=== PATIENT | female | born 1960 | race Caucasian/White ===

== ENCOUNTER → 2016-07-07 | Outpatient (CLI) | payer MEDICARE ==
--- NOTE | 2016-07-08 13:14 | MM ---
Reason for exam: screening (asymptomatic). Last mammogram was performed 1 year ago. History: Patient is postmenopausal. Physical Findings: A clinical breast exam by your physician is recommended on an annual basis and results should be correlated with mammographic findings. MG 3D Screening Mammo W/Cad Bilateral CC and MLO view(s) were taken. Prior study comparison: July 06, 2015, bilateral MG 3d screening mammo w/cad. The breast tissue is heterogeneously dense. This may lower the sensitivity of mammography. No significant changes when compared with prior studies. ASSESSMENT: Negative, BI-RAD 1 RECOMMENDATION: Routine screening mammogram of both breasts in 1 year. Manage patient on a clinical basis.
== END | disposition home or self-care (01) ==
LOC: RADMAMWWP 08:33
PROVIDERS: ATTEND Family Medicine
DX: Z12.31 Encounter for screening mammogram for malignant neoplasm of breast (principal)
CPT/HCPCS: 77063; G0202

== ENCOUNTER 2020-02-11 01:51 | Emergency (ER) | payer MEDICARE ==
[2020-02-11 02:00] VITALS: RESP 16
--- NOTE | 2020-02-11 02:45 | ED ---
Psych HPI - General Chief Complaint: Psychiatric Symptoms Stated Complaint: mental health Time Seen by Provider: 02/11/20 02:07 Source: patient, EMS Mode of arrival: EMS - History of Present Illness Initial Comments: This patient is a 59-year-old woman who presents to have psychiatric evaluation. The patient had phoned 911 a number of times tonight. She states that she has been having racing thoughts and is concerned that things are disappearing from her house. She was concerned that people may be taking things from her. MD Complaint: other -: days(s) Associated Psychiatric Symptoms: racing thoughts History of same: Yes Quality: getting worse Improves With: none Worsens With: none - Related Data Home Medications Medication Instructions Recorded Confirmed LORazepam [Ativan] 0.25 mg PO DIRECTED 07/30/14 07/30/14 [place] Carbonate [[place]] 1 tab PO HS 07/30/14 07/30/14 traZODone HCL [Desyrel] 1 tab PO HS 07/30/14 07/30/14 Previous Rx's Medication Instructions Recorded ALPRAZolam [Xanax] 0.5 mg PO HS PRN #5 tablet 07/30/14 Allergies Allergy/AdvReac Type Severity Reaction Status Date / Time divalproex sodium AdvReac Swelling Verified 07/30/14 16:56 [From Depakote] lamotrigine [From Lamictal] AdvReac Swelling Verified 07/30/14 16:56 Review of Systems ROS Statement: Those systems with pertinent positive or pertinent negative responses have been documented in the HPI. ROS Other: All systems not noted in ROS Statement are negative. Constitutional: Denies: fever, chills Respiratory: Reports: cough. Denies: dyspnea, wheezes, hemoptysis Cardiovascular: Denies: chest pain, palpitations, syncope Gastrointestinal: Denies: abdominal pain, vomiting, diarrhea Genitourinary: Denies: dysuria, hematuria Musculoskeletal: Denies: back pain Skin: Denies: rash Neurological: Denies: headache Psychiatric: Reports: as per HPI, anxiety. Denies: depression, visual hallucinations, homicidal thoughts, suicidal thoughts Past Medical History Past Medical History: No Reported History, COPD History of Any Multi-Drug Resistant Organisms: None Reported Past Surgical History: Section Past Psychological History: Anxiety, Bipolar Smoking Status: Current every day smoker Past Alcohol Use History: None Reported Past Drug Use History: None Reported General Exam Limitations: no limitations General appearance: alert, in no apparent distress Head exam: Present: atraumatic, normocephalic Eye exam: Present: normal appearance. Absent: scleral icterus, conjunctival injection ENT exam: Present: normal oropharynx Neck exam: Present: normal inspection Respiratory exam: Present: normal lung sounds bilaterally. Absent: respiratory distress, wheezes, rales, rhonchi, stridor Cardiovascular Exam: Present: regular rate, normal rhythm, normal heart sounds. Absent: systolic murmur, diastolic murmur, rubs, gallop GI/Abdominal exam: Present: soft. Absent: distended, tenderness, guarding, rebound, rigid, mass Extremities exam: Present: normal inspection, normal capillary refill Back exam: Present: normal inspection Neurological exam: Present: alert, normal gait Psychiatric exam: Present: anxious. Absent: depressed, agitated, flat affect, manic, homicidal ideation, suicidal ideation Skin exam: Present: warm, dry, intact, normal color. Absent: rash Course Vital Signs 02/11/20 01:53 Temperature 98.4 F Pulse Rate 97 Respiratory 16 Rate Blood Pressure 109/65 O2 Sat by Pulse 94 L Oximetry Medical Decision Making - Lab Data Lab Results 02/11/20 Range/Units 02:26 Urine Opiates Screen Not Detected (NotDetected) Ur Oxycodone Screen Not Detected (NotDetected) Urine Methadone Screen Not Detected (NotDetected) Ur Propoxyphene Screen Not Detected (NotDetected) Ur Barbiturates Screen Not Detected (NotDetected) U Tricyclic Antidepress Not Detected (NotDetected) Ur Phencyclidine Scrn Not Detected (NotDetected) Ur Amphetamines Screen Not Detected (NotDetected) U Methamphetamines Scrn Not Detected (NotDetected) U Benzodiazepines Scrn Not Detected (NotDetected) Urine Cocaine Screen Not Detected (NotDetected) U Marijuana (THC) Screen Not Detected (NotDetected) Disposition Clinical Impression: Acute anxiety Disposition: HOME SELF-CARE Condition: Good Instructions (If sedation given, give patient instructions): Anxiety (ED) Is patient prescribed a controlled substance at d/c from ED?: No Referrals: Ernesto Mckay MD [Primary Care Provider] - 1-2 days
[2020-02-11 03:08] LABS: Amphetamine Screen,Urine Not Detected (NotDetected); Barbiturate Screen,Urine Not Detected (NotDetected); Benzodiazepines Screen,Urine Not Detected (NotDetected); Cocaine Screen,Urine Not Detected (NotDetected); Methadone Screen, Urine Not Detected (NotDetected); Opiate Screen,Urine Not Detected (NotDetected); Oxycodone Screen, Urine Not Detected (NotDetected); Phencyclidine Screen,Urine Not Detected (NotDetected); Tricyclic Antidepressant,Urine Not Detected (NotDetected); Urn Cannabinoid Scrn Not Detected (NotDetected)
[2020-02-11] MEDS ORDERED: MELATONIN 3 MG TABLET PO ONE (04:15)
[2020-02-11 06:06] VITALS: BP 115/71; PULSE 82; TEMP 97.9
[2020-02-11] MEDS ORDERED: MELATONIN 3 MG TABLET PO SCH (21:00)
== END 2020-02-11 06:00 | disposition home or self-care (01) ==
LOC: EC 01:51
DX: F41.9 Anxiety disorder, unspecified (principal); F31.9 Bipolar disorder, unspecified; F17.200 Nicotine dependence, unspecified, uncomplicated; Z79.899 Other long term (current) drug therapy; Z88.8 Allergy status to other drugs, medicaments and biological substances
CPT/HCPCS: 80306; 82075; 87635; 99284

== ENCOUNTER → 2022-06-30 | Outpatient (CLI) | payer MEDICARE ==
--- NOTE | 2022-07-01 19:27 | MM ---
Reason for Exam: Screening (asymptomatic). Last mammogram was performed 6 year(s) and 0 month(s) ago. Patient History: Menarche at age 14. First Full-Term at age 26. Postmenopausal. Risk Values: Dottie 5 year model risk: 1.6%. NCI Lifetime model risk: 8.1%. Prior Study Comparison: 07/06/2015 Bilateral Screening Mammogram, [facility]. 07/07/2016 Bilateral Screening Mammogram, [facility]. Tissue Density: The breast tissue is heterogeneously dense. This may lower the sensitivity of mammography. Findings: Analyzed By CAD. There is no suspicious group of microcalcifications or new suspicious mass in either breast. Overall Assessment: Negative, BI-RAD 1 Management: Screening Mammogram of both breasts in 1 year. . Patient should continue monthly self-breast exams. A clinical breast exam by your physician is recommended on an annual basis. This exam should not preclude additional follow-up of suspicious palpable abnormalities. Note on Dottie scores and lifetime risk: 1. A Dottie score greater than 3% is considered moderate risk. If this is the case, consider specialist referral to assess eligibility for a risk reducing agent. 2. If overall lifetime risk for the development of breast cancer is 20% or higher, the patient may qualify for future screening with alternating mammogram and breast MRI. Electronically signed and approved by: Moy Bueno M.D. Radiologist
== END | disposition home or self-care (01) ==
LOC: RADMAMWWP 12:31
PROVIDERS: ATTEND Family Medicine
DX: Z12.31 Encounter for screening mammogram for malignant neoplasm of breast (principal); Z78.0 Asymptomatic menopausal state
CPT/HCPCS: 77063; 77067

== ENCOUNTER → 2022-06-30 | Outpatient (CLI) | payer MEDICARE ==
--- NOTE | 2022-06-30 22:41 | CTL ---
EXAMINATION TYPE: CT Low Dose Lung DATE OF EXAM ORDERED: 06/30/2022 HISTORY: 61-year-old female Z87.891, personal history of tobacco use. Current smoker with 45 pack-yea r history. Lung cancer screening CT DLP: [address] CTDI: 2.64 mGy Automated exposure control for dose reduction was used. SCREENING VISIT: Baseline COMPARISON: None TECHNIQUE: Low dose computed tomography scan was performed through the chest with coronal and sagitta l reconstructions. CT DIAGNOSTIC QUALITY: Limited, but interpretable FINDINGS: The heart is normal size without pericardial effusion. Mild LAD coronary artery calcifications are pr esent. Ascending aorta measures mildly aneurysmal at 4.2 cm. Upper descending thoracic aorta is ectatic at 3 .5 cm. Lower descending thoracic aorta mildly aneurysmal at 3.2 cm. Scattered nonenlarged mediastinal lymph nodes are present. No thoracic lymphadenopathy by CT size cri teria. Lobulated, bulky appearing thyroid gland. Dedicated thyroid ultrasound could exclude underlying nodul es. Asymmetric elevation right hemidiaphragm. If concern for hemidiaphragmatic paralysis, a fluoroscopic sniff test could be performed. Prominent bands of atelectasis/scarring at the right mid and lower lung. Minimal biapical pleural-par enchymal scarring. Moderate bronchial wall thickening. Some segmental chronic volume loss within the anterior right base. No consolidation or pleural effusion. Very limited assessment of the visualized upper abdomen due to noncontrast, low-dose CT technique. Bones: No osseous destructive process. IMPRESSION: 1. Lung RADS 1, negative. No suspicious pulmonary nodules. 2. Asymmetric elevation right hemidiaphragm. Concern for hemidiaphragmatic paralysis, a fluoroscopic sniff test could be performed. 3. Bronchial wall thickening suggests bronchitis or chronic asthma. There is some minimal underlying emphysematous change. Bands of scarring at the right mid and lower lung. An area of chronic segmental volume loss along the anterior right base. 4. Bulky thyroid gland. Dedicated thyroid ultrasound could assess for underlying nodules. CT LUNG RAD AND CT CHEST RECOMMENDATION: Lung-Rad 1 Negative: Continue annual screening with LDCT in 12 months. S Modifier (other clinically significant findings): S, see above in regards to the thyroid gland and the right hemidiaphragm.
== END | disposition home or self-care (01) ==
LOC: RADCTMAIN 12:32
PROVIDERS: ATTEND Family Medicine
DX: Z12.2 Encounter for screening for malignant neoplasm of respiratory organs (principal); J43.9 Emphysema, unspecified; J98.4 Other disorders of lung; J98.6 Disorders of diaphragm; F17.210 Nicotine dependence, cigarettes, uncomplicated
CPT/HCPCS: 71271

== ENCOUNTER 2022-07-23 20:16 | Emergency (ER) | payer MEDICARE ==
[2022-07-23 20:37] VITALS: TEMP 98.6
--- NOTE | 2022-07-23 21:52 | XR ---
EXAMINATION TYPE: XR chest 2V DATE OF EXAM: 07/23/2022 8:57 PM COMPARISON: none TECHNIQUE: XR chest 2V Frontal and lateral views of the chest. CLINICAL INDICATION:Female, 61 years old with history of Coughing up blood; FINDINGS: Lungs/Pleura: Bibasilar atelectasis. No evidence for pneumothorax, pleural effusion or focal consolid ation. Pulmonary vascularity: Unremarkable. Heart/mediastinum: Cardiomediastinal silhouette is unremarkable. Musculoskeletal: No acute osseous pathology. IMPRESSION: Right basilar flat like atelectasis, No acute cardiopulmonary disease/process.
--- NOTE | 2022-07-23 22:10 | ED ---
Recheck HPI - General Chief Complaint: Upper Respiratory Infection Stated Complaint: coughing up blood Time Seen by Provider: 07/23/22 21:41 Source: patient, RN notes reviewed, old records reviewed Mode of arrival: ambulatory Limitations: no limitations - History of Present Illness Initial Comments: This is a 61-year-old female to the ER today. She presents today for evaluation regards to coughing and coughing up blood. History of bronchitis recent computed tomography scan to rule out cancer. No travel history no sick contacts no fevers no current chest pain. MD Complaint: other (Hemoptysis) -: days(s) Returns Today for: other (States that she still is coughing up blood although improving now it's mixed with mucus) Symptoms Since Prior Visit: no new symptoms Associated Symptoms: none Treatments Prior to Arrival: other - Related Data Home Medications Medication Instructions Recorded Confirmed LORazepam [Ativan] 0.25 mg PO DIRECTED 07/30/14 07/30/14 [place] Carbonate [[place]] 1 tab PO HS 07/30/14 07/30/14 traZODone HCL [Desyrel] 1 tab PO HS 07/30/14 07/30/14 Previous Rx's Medication Instructions Recorded ALPRAZolam [Xanax] 0.5 mg PO HS PRN #5 tablet 07/30/14 Allergies Allergy/AdvReac Type Severity Reaction Status Date / Time divalproex sodium AdvReac Swelling Verified 07/23/22 20:37 [From Depakote] lamotrigine [From Lamictal] AdvReac Swelling Verified 07/23/22 20:37 Review of Systems ROS Statement: Those systems with pertinent positive or pertinent negative responses have been documented in the HPI. ROS Other: All systems not noted in ROS Statement are negative. Past Medical History Past Medical History: No Reported History, COPD History of Any Multi-Drug Resistant Organisms: None Reported Past Surgical History: Section Past Psychological History: Anxiety, Bipolar Smoking Status: Current every day smoker Past Alcohol Use History: None Reported Past Drug Use History: None Reported General Exam Limitations: no limitations General appearance: alert, in no apparent distress Head exam: Present: atraumatic, normocephalic, normal inspection Eye exam: Present: normal appearance, PERRL, EOMI. Absent: scleral icterus, conjunctival injection, periorbital swelling ENT exam: Present: normal exam, mucous membranes moist Neck exam: Present: normal inspection. Absent: tenderness, meningismus, lymphadenopathy Respiratory exam: Present: wheezes. Absent: normal lung sounds bilaterally, respiratory distress, rales, rhonchi, stridor Cardiovascular Exam: Present: regular rate, normal rhythm, normal heart sounds. Absent: systolic murmur, diastolic murmur, rubs, gallop, clicks GI/Abdominal exam: Present: soft, normal bowel sounds. Absent: distended, tenderness, guarding, rebound, rigid Extremities exam: Present: normal inspection, full ROM, normal capillary refill. Absent: tenderness, pedal edema, joint swelling, calf tenderness Back exam: Present: normal inspection Neurological exam: Present: alert, oriented X3, CN II-XII intact Psychiatric exam: Present: normal affect, normal mood Skin exam: Present: warm, dry, intact, normal color. Absent: rash Course Vital Signs 07/23/22 07/23/22 20:33 22:32 Temperature 98.6 F Pulse Rate 92 89 Respiratory 15 18 Rate Blood Pressure 115/76 155/86 O2 Sat by Pulse 93 L 94 L Oximetry - Reevaluation(s) Reevaluation #1: 07/23/22 22:39 Medical record is reviewed Reevaluation #2: 07/23/22 22:39 Patient has no hemoptysis here in the ER Reevaluation #3: 07/23/22 22:39 Patient informed of results of x-ray and CT questions are answered Reevaluation #4: 07/23/22 22:39 Was pt. sent in by a medical professional or institution? @ -no Did you speak to anyone other than the patient for history? @ -no Did you review nursing and triage notes? @ -agree Were old charts reviewed? @ -no Differential Diagnosis? @ -prior EKG interpreted by me (3pts min.)? @ -yes X-rays interpreted by me (1pt min.)? @ -yes CT interpreted by me (1pt min.)? @ -no U/S interpreted by me (1pt. min.)? @ -no What testing was considered but not performed? (CT, X-rays, U/S, labs)? Why? @ -no What meds were considered but not given? Why? @ -no Did you discuss the management of the patient with other professionals? @ -no Did you reconcile home meds? @ -no Was smoking cessation discussed for >3mins.? @ -no Was critical care preformed (if so, how long)? @ -no Were there social determinants of health that impacted care today? How? (Homelessness, low income, unemployed, alcoholism, drug addiction, transportation, low edu. Level, literacy, decrease access to med. care, nursing home, rehab)? @ -no Was there de-escalation of care discussed even if they declined? (Discuss DNR or withdrawal of care, Hospice)? @ -no What co-morbidities impacted this encounter? (DM, HTN, Smoking, COPD, CAD, Cancer, CVA, Hep., AIDS, mental health diagnosis, sleep apnea, morbid obesity)? @ -none Was patient admitted / discharged? @ - Undiagnosed new problem with uncertain prognosis? @ -no Drug Therapy requiring intensive monitoring for toxicity (Heparin, Nitro, Insulin, Cardizem)? @ -no Were any procedures done? @ -no Diagnosis/symptom? @ - Acute, or Chronic, or Acute on Chronic? @ -no Uncomplicated (without systemic symptoms) or Complicated (systemic symptoms)? @ -uncomplicated Side effects of treatment? @ -no Exacerbation, Progression, or Severe Exacerbation] @ -no Poses a threat to life or bodily function? @ -yes Reevaluation #5: 07/23/22 22:39 Differential Dyspnea: Coronary syndrome, arrhythmia, tamponade, asthma, COPD, pulmonary embolism, pneumonia, pneumothorax, pulmonary effusion, anaphylaxis, diabetic ketoacidosis, flailed chest, pulmonary contusion, diaphragmatic rupture, anemia, neuromuscular, this is not meant to be an all-inclusive list. Medical Decision Making - Medical Decision Making 61 female with hemoptysis, improving from prior recent computed tomography scan showed chest x-ray is negative, patient is in no distress and can be discharged home - Lab Data Lab Results 07/23/22 Range/Units 21:43 Influenza Type A (PCR) Not Detected (Not Detectd) Influenza Type B (PCR) Not Detected (Not Detectd) RSV (PCR) Not Detected (Not Detectd) SARS-CoV-2 (PCR) Not Detected (Not Detectd) - Radiology Data Radiology results: report reviewed (Chest x-rays negative for acute disease), image reviewed Disposition Clinical Impression: Hemoptysis Disposition: ADMITTED IP TO THIS HOSP Condition: Good Instructions (If sedation given, give patient instructions): Coughing Up Blood (Hemoptysis) (ED) Is patient prescribed a controlled substance at d/c from ED?: No Referrals: Roberto Raman MD [Primary Care Provider] - 1-2 days Time of Disposition: 22:10
[2022-07-23 22:37] VITALS: BP 155/86; PULSE 89; RESP 18
== END 2022-07-23 22:36 | disposition other institution (70) ==
LOC: EC 20:16
DX: R04.2 Hemoptysis (principal); J44.9 Chronic obstructive pulmonary disease, unspecified; F41.9 Anxiety disorder, unspecified; F31.9 Bipolar disorder, unspecified; F17.200 Nicotine dependence, unspecified, uncomplicated; Z79.899 Other long term (current) drug therapy; Z88.6 Allergy status to analgesic agent; Z88.8 Allergy status to other drugs, medicaments and biological substances; Z20.822 Contact with and (suspected) exposure to COVID-19
CPT/HCPCS: 71046; 87636; 99284

== ENCOUNTER → 2022-08-11 | Outpatient (CLI) | payer MEDICARE ==
--- NOTE | 2022-08-11 11:48 | FL ---
CLINICAL INDICATION: Evaluate for right diaphragmatic paralysis. COMPARISON: Chest radiograph 07/23/2022, CT low-dose lung cancer screening 06/30/2022 TECHNIQUE: With the patient standing, fluoroscopy of the right and left hemidiaphragm was observed du ring normal resting respiration as well as deep inspiration, deep expiration, and "sniffing." Fluoroscopic time: 9 seconds Fluoroscopic images: 72 Total DAP: 1866.7 mGycm2 FINDINGS: The right diaphragm is elevated compared to the left. The right diaphragm contracts during inspiration. Both hemidiaphragms move together with more movemen t of the left diaphragm compared to the right. There is atelectasis and/or scarring demonstrated wit hin the right lung base. IMPRESSION: No definitive evidence for right diaphragmatic paralysis.
== END | disposition home or self-care (01) ==
LOC: RADUSWWP 09:38
PROVIDERS: ATTEND Internal Medicine
DX: Q79.1 Other congenital malformations of diaphragm (principal)
CPT/HCPCS: 76000